=== PATIENT | male | born 1975 | race Caucasian/White ===

== ENCOUNTER 2019-01-27 12:49 | Emergency (ER) | payer OTHER ==
[~2019-01-27] VITALS: Ht 182.8 cm; Wt 111.1 kg
--- NOTE | ~2019-01-27 | EKG ---
[place], [place] ELECTROCARDIOGRAM REPORT NAME: FÉLIX CUNHA UNIT #: [id number] ROOM: DOCTOR: EPIPHANY DRAFT REPORT BIRTHDATE: [birth year] [facility] Test Date: 2019-01-27 Test Time: 12:52:26 Pat Name: FÉLIX CUNHA Department: Room: Gender: Stenographer [employer]: : 1975 Requested By: ANGELA QUIROGA Order Number: [id number] Reading MD: Taiwo Suarez MD Measurements Intervals [place] Rate: 104 P: 58 NM: 149 QRS: -27 QRSD: 102 T: 19 QT: 347 QTc: 457 Interpretive Statements Sinus tachycardia Incomplete RBBB Possible inferior infarct, old No previous ECG available for comparison Electronically Signed On 01-28-2019 8:08:33 PDT by Taiwo Suarez MD CM:EKGRPT:ELECTROCARDIOGRAM REPORT [id number] ANGELA GONZALEZ DRAFT REPORT ANGELA QUIROGA M.D.
[2019-01-27 13:19] LABS: BASO # 0.1 10*3/uL (0.0-0.1); BASO % 0.9 % (0.0-1.0); EOS # 0.1 10*3/uL (0.0-0.4); HEMOGLOBIN 15.9 g/dl (14.0-18.0); LYMPH # 2.2 10*3/uL (1.3-4.4); LYMPH % 27.6 % (27.0-41.0); MEAN CORPUSCULAR HGB 33.2 pg (27.0-31.0); MEAN CORPUSCULAR HGB CONC 34.6 g/dl (33.0-37.0); MEAN PLATELET VOLUME 10.2 fl (9.6-12.3); MONO # 0.7 10*3/uL (0.1-1.0); NEUT # 4.9 10*3/uL (2.3-7.9); NEUT % 60.9 % (47.0-73.0); PLATELET COUNT AUTOMATED 197 10*3/uL (130-400); RED BLOOD COUNT 4.79 10*6/uL (4.50-5.90)
[2019-01-27 13:30] LABS: ACT PARTIAL THROMBO TIME 24.8 SECONDS (20.0-32.1); INTERNATIONAL NORM RATIO 0.9 (2.0-3.5)
[2019-01-27 13:35] LABS: ALKALINE PHOSPHATASE 71 U/L (45-117); BUN 12 mg/dl (7-24); CHLORIDE 103 mmol/L (98-107); CREATININE 0.96 mg/dL (0.70-1.30); POTASSIUM 3.8 mmol/L (3.5-5.1); SGOT/AST 38 IU/L (3-35); SGPT/ALT 78 U/L (12-78); SODIUM 138 mmol/L (136-145); TOTAL PROTEIN 7.5 gm/dL (6.4-8.2)
[2019-01-27 13:36] LABS: TROPONIN I < 0.015 ng/ml (<0.045)
[2019-01-27] MEDS ORDERED: ALLEGRA ALLERG180 M2 PO (14:55)
[2019-01-27] MEDS ORDERED: FLONASE ALLERG9.9 ML NAS (14:55)
== END 2019-01-27 15:16 | disposition home or self-care (01) ==
LOC: ED 12:49
PROVIDERS: Emergency Medicine
DX: R07.89 Other chest pain (principal); J30.9 Allergic rhinitis, unspecified; R42 Dizziness and giddiness; Z87.891 Personal history of nicotine dependence

== ENCOUNTER 2019-02-16 12:05 | Inpatient (IN) | payer OTHER ==
[~2019-02-16] VITALS: Ht 182.8 cm; Wt 110.4 kg
--- NOTE | ~2019-02-16 | EKG ---
[place], [place] ELECTROCARDIOGRAM REPORT NAME: FÉLIX CUNHA UNIT #: [id number] ROOM: 519 DOCTOR: LISA DRAFT REPORT BIRTHDATE: [birth year] [facility] Test Date: 2019-02-16 Test Time: 12:12:36 Pat Name: FÉLIX CUNHA Department: Room: 519 Gender: M Auditing Clerk: Li Ferrer : 1975 Requested By: ANGELA QUIROGA Order Number: [id number] Reading MD: May Urias Measurements Intervals [place] Rate: 83 P: 66 NE: 155 QRS: -24 QRSD: 95 T: 11 QT: 361 QTc: 425 Interpretive Statements Sinus rhythm RSR' in V1 or V2, probably normal variant Inferior infarct, old Compared to ECG 01/27/2019 12:52:26 RSR' in V1 or V2 now present Sinus tachycardia no longer present Right bundle-branch block no longer present Myocardial infarct finding still present Electronically Signed On 02-18-2019 8:02:04 PDT by May Urias CM:EKGRPT:ELECTROCARDIOGRAM REPORT [id number] ANGELA GONZALEZ DRAFT REPORT ANGELA QUIROGA M.D.
--- NOTE | ~2019-02-16 | EKG ---
[place], [place] ELECTROCARDIOGRAM REPORT NAME: FÉLIX CUNHA UNIT #: [id number] ROOM: 519 DOCTOR: LISA DRAFT REPORT BIRTHDATE: [birth year] [facility] Test Date: 2019-02-16 Test Time: 14:47:56 Pat Name: FÉLIX CUNHA Department: Room: 519 Gender: M Director Speech Language: Li Ferrer : 1975 Requested By: ANGELA QUIROGA Order Number: [id number] Reading MD: May Urias Measurements Intervals [place] Rate: 76 P: 20 RI: 158 QRS: -23 QRSD: 94 T: 3 QT: 382 QTc: 430 Interpretive Statements Sinus rhythm RSR' in V1 or V2, probably normal variant Inferior infarct, old Compared to ECG 01/27/2019 12:52:26 RSR' in V1 or V2 now present Sinus tachycardia no longer present Right bundle-branch block no longer present Myocardial infarct finding still present Electronically Signed On 02-18-2019 8:04:29 PDT by May Urias CM:EKGRPT:ELECTROCARDIOGRAM REPORT [id number] ANGELA GONZALEZ DRAFT REPORT ANGELA QUIROGA M.D.
--- NOTE | ~2019-02-16 | ST ---
[place], [place] EXERCISE STRESS TEST REPORT [id number] UNIT #: [id number] ROOM: [facility] DOCTOR: ORESTES DENNY,TAZ BIRTHDATE: [birth year] DOS: 02/17/2019 EXERCISE NUCLEAR STRESS TEST REASON FOR TEST: Chest pain. PHYSICAL EXAMINATION NECK: Supple. LUNGS: Clear anteriorly. HEART: Regular rhythm. PROTOCOL: Efra protocol. Total stress time 6 minutes 50 seconds. Maximum heart 167, 94% target heart rate. Peak blood pressure 150/74. Total mets 7.4 mets. SYMPTOMS: The patient is chest pain free. Sapp treadmill score +6. EKG: Resting EKG showed sinus rhythm. Stress EKG showed no ischemia, no arrhythmias. CONCLUSION: Clinically, the patient is chest pain free. EKG nonischemic. POST-STRESS COMPLICATIONS: None. TAZ CARLISLE MD CM:STRESS:EXERCISE STRESS TEST REPORT [id number] TAZ CARLISLE MD
--- NOTE | ~2019-02-16 | CON ---
[place], [place] REPORT OF CONSULTATION NAME[id number] UNIT #: [id number] ROOM: 519 DOCTOR: TAZ CARLISLE MD BIRTHDATE: [birth year] DOS: 02/17/2019 CARDIOLOGY CONSULTATION REASON FOR CONSULTATION: Chest pain. HISTORY OF PRESENT ILLNESS: The patient is a 43-year-old gentleman with history of dyslipidemia, panic attacks, hypertension, non-morbid obesity, was presented to the Emergency Room for several episodes of chest pain for the past few months. He describes the pain as a pressure-like sensation in his head, neck and also chest area with some numbness and tingling in his legs, feel like his heart all over and with some dizziness, but never passed out. Additionally, he gets some nausea with these episodes. So, he presented to the Emergency Room because of these symptoms along with his chest pains and he was admitted to the hospital and Cardiology consulted for any further recommendations. At the time of examination, the patient was pain free and again his pain is left-sided chest wall, he described like a sharp pain, no radiation, no associated symptoms. He is doing some weights and also pulling some strings for exercise few times a week. He was started on Lexapro few days ago, but no bladder or bowel symptoms. No nausea, vomiting. No neurologic symptoms such as headache or any weakness. No bladder or bowel symptoms. REVIEW OF SYSTEMS: Review of 10 systems negative except as mentioned above. PAST MEDICAL HISTORY: 1. Hypertension. 2. Anxiety and panic attacks. 3. Dyslipidemia. PAST SURGICAL HISTORY: No significant surgical history. SOCIAL HISTORY: The patient is a former smoker, does not use drugs, does not abuse alcohol. FAMILY HISTORY: Father has myocardial infarction. Mother noncontributory. ALLERGIES: No known drug allergies. CURRENT MEDICATIONS: Reviewed. PHYSICAL EXAMINATION: VITAL SIGNS: Blood pressure 126/71, pulse 78, respiratory rate 18, weight 110 kg, BMI 33. GENERAL: Alert, comfortable, in no acute distress. HEENT: Pupils are round and equal. No jaundice. Tongue was moist and pharynx clear. NECK: Supple, no distended neck veins. No carotid bruit. CHEST: Symmetrical, nontender. LUNGS: Clear to auscultation bilaterally. HEART: Regular rhythm, no S3, no palpable thrills. [place], [place] REPORT OF CONSULTATION NAME: FÉLIX CUNHA UNIT #: [id number] ROOM: 519 DOCTOR: ORESTES DENNY,TAZ BIRTHDATE: [birth year] ABDOMEN: Obese, nontender. Bowel sounds normal. EXTREMITIES: Showed no edema. Distal pulses palpable. SKIN: Warm and dry. No cyanosis, no clubbing. RECTAL: Deferred. GENITOURINARY: Deferred. NEUROLOGIC: The patient is alert with no focal neurologic deficit. REVIEW OF THE DIAGNOSTIC TESTS: EKG reviewed, sinus rhythm, nonspecific ST changes. CBC, chemistry unremarkable. Troponin was negative. Total cholesterol 213, LDL 131, HDL 44. IMPRESSION: 1. Chest pain, atypical, myocardial infarction ruled out. 2. Labile hypertension. 3. Non-morbid obesity. 4. Possible anxiety and panic attacks. 5. Family history of coronary artery disease in the dad. 6. Dyslipidemia. RECOMMENDATIONS: The chest pains are atypical. 1. Scheduled for exercise nuclear stress test today. 2. Low cholesterol diet, exercise, weight loss discussed for his dyslipidemia. 3. Risk factor modification for diet, exercise, weight loss was discussed. 4. If the stress test is unremarkable, he can be discharged home from the cardiac standpoint. TAZ CARLISLE MD CM:CONSTR:REPORT OF CONSULTATION 02/18/19 0303 interface
--- NOTE | ~2019-02-16 | EKG ---
[place], [place] ELECTROCARDIOGRAM REPORT NAME: FÉLIX CUNHA UNIT #: [id number] ROOM: 519 DOCTOR: LISA DRAFT REPORT BIRTHDATE: [birth year] [facility] Test Date: 2019-02-16 Test Time: 18:00:28 Pat Name: FÉLIX CUNHA Department: Room: 519 Gender: M Orchard Sprayer: Li Ferrer : 1975 Requested By: ANGELA QUIROGA Order Number: [id number] Reading MD: May Urias Measurements Intervals [place] Rate: 80 P: 28 PA: 166 QRS: -20 QRSD: 101 T: 3 QT: 386 QTc: 446 Interpretive Statements Sinus rhythm RSR' in V1 or V2, probably normal variant Inferior infarct, old Baseline wander in lead(s) I,II,aVR Compared to ECG 01/27/2019 12:52:26 RSR' in V1 or V2 now present Sinus tachycardia no longer present Right bundle-branch block no longer present Myocardial infarct finding still present Electronically Signed On 02-18-2019 8:05:43 PDT by May Urias CM:EKGRPT:ELECTROCARDIOGRAM REPORT [id number] ANGELA GONZALEZ DRAFT REPORT ANGELA QUIROGA M.D.
[~2019-02-16 12:05] MED LIST: ALLEGRA ALLERG180 M2 PO; FLONASE ALLERG9.9 ML NAS
[2019-02-16 12:21] VITALS: BP 138/87
[2019-02-16 12:26] LABS: BASO # 0.1 10*3/uL (0.0-0.1); BASO % 0.6 % (0.0-1.0); EOS % 0.3 % (1.0-4.0); HEMATOCRIT 46.2 % (42.0-52.0); HEMOGLOBIN 16.4 g/dl (14.0-18.0); LYMPH # 1.7 10*3/uL (1.3-4.4); LYMPH % 21.2 % (27.0-41.0); MEAN CELL VOLUME 93.3 fl (80.0-94.0); MEAN CORPUSCULAR HGB 33.1 pg (27.0-31.0); MEAN CORPUSCULAR HGB CONC 35.5 g/dl (33.0-37.0); MEAN PLATELET VOLUME 10.1 fl (9.6-12.3); MONO # 0.6 10*3/uL (0.1-1.0); MONO % 7.4 % (3.0-9.0); NEUT # 5.5 10*3/uL (2.3-7.9); NEUT % 69.7 % (47.0-73.0); PLATELET COUNT AUTOMATED 216 10*3/uL (130-400); RED BLOOD COUNT 4.95 10*6/uL (4.50-5.90); RED CELL DISTRI WIDTH 11.8 % (0-14.5); WHITE BLOOD COUNT 7.9 10*3/uL (4.8-10.8)
[2019-02-16 12:36] LABS: ACT PARTIAL THROMBO TIME 24.4 SECONDS (20.0-32.1); INTERNATIONAL NORM RATIO 0.9 (2.0-3.5)
[2019-02-16 12:43] LABS: ALBUMIN 4.3 gm/dl (3.1-4.5); ALKALINE PHOSPHATASE 71 U/L (45-117); BUN 11 mg/dl (7-24); CHLORIDE 104 mmol/L (98-107); CREATININE 0.96 mg/dL (0.70-1.30); POTASSIUM 3.9 mmol/L (3.5-5.1); SGOT/AST 39 IU/L (3-35); SGPT/ALT 89 U/L (12-78); SODIUM 136 mmol/L (136-145)
[2019-02-16 12:54] LABS: TROPONIN I < 0.015 ng/ml (<0.045)
[2019-02-16 13:33] VITALS: BP 135/83
--- NOTE | 2019-02-16 13:34 | NUR ---
PT IS RESTING IN BED WITH NO COMPLAINTS AT THIS TIME. PROVIDER AT BEDSIDE.
[2019-02-16 15:34] VITALS: BP 112/85
[2019-02-16 16:00] VITALS: BP 112/85
--- NOTE | 2019-02-16 16:50 | NUR ---
NOTIFIED DR. GALAVIZ ANSWERING SERVICE OF NEW CONSULT.
[2019-02-16] MEDS ORDERED: DIAZEPAM2 MG PO (16:52)
[2019-02-16] MEDS ORDERED: ESOMEPRAZOLE MA40 M1 PO (16:53)
[2019-02-16] MEDS ORDERED: ESCITALOPRAM OXA5 MG PO (16:54)
--- NOTE | 2019-02-16 16:57 | NUR ---
MEDICATIONS RECONCILED WITH PATIENT.
--- NOTE | 2019-02-16 18:17 | NUR ---
SPOKE WITH DR. NOVA ABOUT CONTINUING HOME MEDICATIONS.
--- NOTE | 2019-02-16 18:18 | NUR ---
PATIENT RESTING IN BED AT THIS TIME. FAMILY AT BEDSIDE. VOICES NO CONCERNS/NEEDS AT THIS TIME.
[2019-02-16 20:00] VITALS: BP 126/68
--- NOTE | 2019-02-16 21:13 | NUR ---
PT REQUESTED HIS "NIGHT TIME MEDS". DR. ECHEVARRIA NOTIFIED THAT MEDS HAVE NOT BEEN CONTINUED.
--- NOTE | 2019-02-16 23:40 | NUR ---
PATIENT IS RESTING IN BED WITH EASY AND REGULAR RESPERS ON ROOM AIR, ASSESSMENT IS COMPLETE WITH NO C/O OR S/S OF DISTRESS NOTED AT THIS TIME. PATIENT IS CONCERED ABOUT HOME MEDICATIONS NOT BEING ORDERED, INFORMED PATIENT THAT I WOULD MAKE A CALL TO THE DR. BED IS LOW, LOCKED, AND CALL LIGHT IS WITHIN REACH. SEE SHIFT ASSESSMENT.
--- NOTE | 2019-02-16 23:59 | NUR ---
DE. ECHEVARRIA CONTACTED AT THIS TIME REGARDING PATIENTS HOME MEDICATIONS, HE SAID HE WILL TAKE A LOOK WHEN HE HAS ACCESS TO A COMPUTER.
[2019-02-17] VITALS: BP 126/71
[2019-02-17 06:53] LABS: BASO # 0.1 10*3/uL (0.0-0.1); BASO % 1.1 % (0.0-1.0); EOS # 0.2 10*3/uL (0.0-0.4); EOS % 2.1 % (1.0-4.0); HEMATOCRIT 47.6 % (42.0-52.0); HEMOGLOBIN 16.3 g/dl (14.0-18.0); LYMPH # 2.1 10*3/uL (1.3-4.4); LYMPH % 28.1 % (27.0-41.0); MEAN CORPUSCULAR HGB 32.9 pg (27.0-31.0); MEAN CORPUSCULAR HGB CONC 34.2 g/dl (33.0-37.0); MONO # 0.7 10*3/uL (0.1-1.0); MONO % 9.3 % (3.0-9.0); NEUT # 4.5 10*3/uL (2.3-7.9); NEUT % 58.7 % (47.0-73.0); PLATELET COUNT AUTOMATED 213 10*3/uL (130-400); RED BLOOD COUNT 4.96 10*6/uL (4.50-5.90); RED CELL DISTRI WIDTH 12.1 % (0-14.5); WHITE BLOOD COUNT 7.6 10*3/uL (4.8-10.8)
[2019-02-17 07:28] LABS: CHLORIDE 105 mmol/L (98-107); POTASSIUM 4.4 mmol/L (3.5-5.1); SODIUM 138 mmol/L (136-145)
[2019-02-17 07:46] LABS: BUN 15 mg/dl (7-24); CHOLESTEROL 213 mg/dL (<200); CREATININE 0.99 mg/dL (0.70-1.30); HDL CHOLESTEROL 44 mg/dl (40-60); LDL CHOLESTEROL 131 mg/dL (9-159); TRIGLYCERIDES 189 mg/dl (<150); VLDL CHOLESTEROL 38 mg/dL (6-40)
[2019-02-17 08:00] VITALS: BP 128/82
[2019-02-17 08:38] LABS: VITAMIN D, 25-HYDROXY 25.1 ng/mL (30-100)
--- NOTE | 2019-02-17 08:51 | NUR ---
PATIENT TAKEN TO CARDIAC REHAB FOR STRESS TEST.
--- NOTE | 2019-02-17 10:15 | NUR ---
INFORMED CONSENT SIGNED FOR CARDIOLYTE STRESS TEST WITH DR. CARLISLE. RESTING EKG NSR, HR 79, BP 116/80. COMPLETED 6:15 OF A STANDARD MIRTHA PROTOCOL COMPLETING :15 STAGE III, 3.4 MPH/14% GRADE. PEAK HEART RATE OF 168 ACHIEVED WHICH IS 95% PREDICTED MAXIMUM AND A PEAK BP OF 150/74. NO ARRHYTHMIAS OR ST CHANGES NOTED. THERE WAS NO CHANGE IN PT'S CHEST DISCOMFORT. TEST TERMINATED D/T FATIGUE. HAS A FAIR EXERCISE TOLERANCE. LAST RECOVERY HR 113, BP 128/84. WAITING NUCLEAR SCANNING IN STABLE CONDITION.
[2019-02-17 12:00] VITALS: BP 123/74
--- NOTE | 2019-02-17 13:06 | NUR ---
Farm Management Agent in to talk to patient. Patient states lives at HOME with . There are FEW steps in the home. Physician: [facility] Pharmacy: [facility] health services: NONE Patient's level of ADLs: INDEPENDENT Patient has working utilities: YES DME: NONE Follow-up physician's appointment after d/c: WILL BE MADE BY HOSPITALIST NURSE DIRECTOR ON DISCHARGE. Does patient want to access PORTAL?: NO Discharge plan PT LIVES WITH AT HOME AND IS INDEPENDENT IN HER CARE. STATES HE WILL RETURN HOME WITH NO NEEDS ON DISCHARGE. WILL CONTINUE TO FOLLOW. PT WILL HAVE A RIDE HOME PER HIM.. PATTI BRIGGS
[2019-02-17 16:00] VITALS: BP 143/90
--- NOTE | 2019-02-17 16:37 | NUR ---
PATIENT TO BE DISCHARGED TO HOME.
--- NOTE | 2019-02-17 17:12 | NUR ---
PATIENT DISCHARGED TO HOME WITH F/U APPOINTMENT ARRANGED.
== END 2019-02-17 17:20 | disposition home or self-care (01) | DRG 880 ==
LOC: ED 12:05 → EDHOLD 14:52 → 5E 14:52
PROVIDERS: Emergency Medicine; ADMIT Internal Medicine
PROC: 4A02XM4 Measurement of Cardiac Total Activity, External Approach (ICD-10-PCS; principal; 2019-02-17)
PROC: 3E033HZ Introduction of Radioactive Substance into Peripheral Vein, Percutaneous Approach (ICD-10-PCS; principal; 2019-02-17)
DX: F41.0 Panic disorder [episodic paroxysmal anxiety] (principal); I10 Essential (primary) hypertension; E78.1 Pure hyperglyceridemia; E55.9 Vitamin D deficiency, unspecified; E78.5 Hyperlipidemia, unspecified; Z87.891 Personal history of nicotine dependence; Z79.899 Other long term (current) drug therapy

== ENCOUNTER 2020-12-26 17:51 | Emergency (ER) | payer OTHER ==
[~2020-12-26] VITALS: Ht 182.8 cm; Wt 117.9 kg
[~2020-12-26 17:51] MED LIST changes: +DIAZEPAM2 MG PO; +ESCITALOPRAM OXA5 MG PO; +ESOMEPRAZOLE MA40 M1 PO
[2020-12-26] MEDS ORDERED: Motrin,Rufen800 MG PO (19:13)
== END 2020-12-26 19:17 | disposition home or self-care (01) ==
LOC: ED 17:51
DX: S93.401A Sprain of unspecified ligament of right ankle, initial encounter (principal); Z87.891 Personal history of nicotine dependence; Z79.899 Other long term (current) drug therapy; X50.1XXA Overexertion from prolonged static or awkward postures, initial encounter; Y93.89 Activity, other specified; Y92.89 Other specified places as the place of occurrence of the external cause; Y99.8 Other external cause status